=== PATIENT | female | born 1990 | race Asian ===

== ENCOUNTER 2020-02-06 12:07 | Emergency (ER) | payer OTHER, SELFPAY ==
[~2020-02-06] VITALS: Ht 157.5 cm; Wt 74.8 kg
[2020-02-06 12:09] VITALS: BP 109/70; Ht 157.5 cm; Wt 74.8 kg
[2020-02-06 14:24] LABS: microscopic required? NO
[2020-02-06 15:29] LABS: UA SPECIFIC GRAVITY 1.015 (1.005-1.035); urine erythrocyte NEGATIVE (NEGATIVE)
== END 2020-02-06 13:05 | disposition home or self-care (01) ==
LOC: ED 12:07
DX: U07.1 COVID-19 (principal)
CPT/HCPCS: U0003